=== PATIENT | male | born 1970 | race Caucasian/White ===

== ENCOUNTER 2022-07-22 01:40 | Day surgery (SDC) | payer BC, SELFPAY ==
[2022-07-08 11:07] VITALS: BMI 29.6
--- NOTE | 2022-07-21 13:38 | P.HP_ITS ---
History of Present Illness History of Present Illness Consent: Risks, benefits, and alternatives have been discussed and questions answered. Patient agrees to proceed with procedure. Chief complaint: neoplasm screening Narrative: Max Davis is a 52 year old male Referred for colon cancer screening. Review of Systems Review of Systems: All systems reviewed & are unremarkable except as noted in HPI and below PMFSH Social History Social History Alcohol intake: current Drinks per week: 5 Living arrangements: with family Spiritual care concerns: No Meds Home Medications and Allergies Home Medications Medication Instructions Recorded Confirmed Type omeprazole 40 mg capsule,delayed 40 mg PO DAILY 07/08/22 07/08/22 History release thyroid (pork) 60 mg tablet (VULNERABILITY ASSESSMENT ANALYST 60 mg PO DAILY 07/08/22 07/08/22 History Thyroid) Allergies Allergy/AdvReac Type Severity Reaction Status Date / Time No Known Allergies Allergy Verified 07/22/22 09:07 Exam Resp: Auscultation: clear to auscultation bilaterally Cardio: Rate: regular rate Rhythm: regular rhythm GI: GI Palp: Yes Soft to palpation and No Tenderness to palpation present (GI) Assessment and Plan Assessment and plan (1) Colon cancer screening: Code(s): Z12.11 - Encounter for screening for malignant neoplasm of colon Status: Acute Assessment and Plan: Colonoscopy with possible biopsy or polypectomy or cautery or injection of substances.
[2022-07-22 09:08] VITALS: BP 149/92; PULSE 69; RESP 18; TEMP 35.7; O2SAT 98
[2022-07-22] MEDS: LACTATED RINGERS 1,000 ML 150 ML IV CONT (09:20)
--- NOTE | 2022-07-22 09:33 | WPDANESEPPF ---
Anes - Initial Pre Proc Eval Procedure: Operation Date: 07/22/22 10:00 Proposed Procedures p Screening Colonoscopy - Josh Casarez MD Date/Time: 07/22/22 09:33 Surgeon: Josh Casarez MD Pre Op Diagnosis: neoplasm screening Patient Data Age: 52 Gender: M Height: 1.85 m Weight: 102.3 kg Last Vital Signs Temp 96.2 F L 07/22/22 09:08 Pulse 69 07/22/22 09:08 Resp 18 07/22/22 09:08 BP 149/92 H 07/22/22 09:08 Pulse Ox 98 07/22/22 09:08 O2 Del Method Room Air 07/22/22 09:08 Allergies Allergy/AdvReac Type Severity Reaction Status Date / Time No Known Allergies Allergy Verified 07/22/22 09:07 Home Medications Medication Instructions Recorded Confirmed Type omeprazole 40 mg capsule,delayed 40 mg PO DAILY 07/08/22 07/08/22 History release thyroid (pork) 60 mg tablet (AIRCRAFT SKIN BURNISHER 60 mg PO DAILY 07/08/22 07/08/22 History Thyroid) Patient hx anesthesia problems: none Family hx anesthesia problems: none Results Review: All pre-operative results and documents have been reviewed as part of the pre-operative evaluation. [facility] Social History Social History Alcohol intake: current Drinks per week: 5 Living arrangements: with family Spiritual care concerns: No Anes - Eval Final PreProcedure Day of Procedure 07/22/22 09:33 Patient weight: normal Heart: regular rate and rhythm Lungs: clear to auscultation Airway: Mallampati scale class II Neurological: alert and oriented Last oral intake: >/= 8 hours ASA classification: II Emergent: no Anesthetic plan: proceed Anesthesia type and monitoring: general GIVS and standard monitoring Results Review: All pre-operative results and documents have been reviewed as part of the pre-operative evaluation. Informed Consent: The patient's anesthetic plan and its attendant risks and benefits were discussed with the patient/family/POA. Questions were solicited and answers provided to the satisfaction of the patient/family/POA.
[2022-07-22] MEDS: SIMETHICONE ORAL SUSPENSION 20 MG/0.3 ML 30 ML BOTTLE 0.6 ML IRRIGATION (10:04)
[2022-07-22 10:20] VITALS: BP 101/59; PULSE 60; RESP 16; O2SAT 93
[2022-07-22 10:30] VITALS: BP 107/66; PULSE 58; RESP 14; O2SAT 94
[2022-07-22 10:40] VITALS: BP 119/79; PULSE 58; RESP 16; O2SAT 97
[2022-07-22 10:50] VITALS: BP 122/75; PULSE 55; RESP 18; O2SAT 99
== END 2022-07-22 10:59 | disposition home or self-care (01) ==
PROVIDERS: PCP Nurse Practitioner Family; Visit Provider Internal Medicine Gastroenterology
PROC: 0DJD8ZZ Inspection of Lower Intestinal Tract, Via Natural or Artificial Opening Endoscopic (ICD-10-PCS; CPT 45378; principal; 2022-07-22 10:00)
DX: Z12.11 Encounter for screening for malignant neoplasm of colon (principal); K63.5 Polyp of colon; K62.1 Rectal polyp
CPT/HCPCS: 45385; 45380; 45381; 88305; J2704; J7120

== ENCOUNTER 2022-08-09 01:14 | Day surgery (SDC) | payer BC, SELFPAY ==
--- NOTE | 2022-08-04 16:51 | SUR.PREOP ---
Report to the Outpatient Waiting Room, entrance under the green pavilion located off [facility], at time 1015 on date 08/09/22. OR Time: 1215. Time changes happen often and if your time is changed the preop area will call you the afternoon before. - You and your visitor will be asked to self-screen and do not enter if you have any COVID symptoms. - Only one visitor and NO children visitors are allowed at this time. - The patient visitor is requested to leave or wait in car when not with patient due to restrictions. - A mask is required within the hospital. Patients may have clear liquids (water, carbonated beverages, clear teas, apple juice) until 3 hours prior to surgery with a maximum of 20 ounces. - NO CLEAR LIQUIDS AFTER 0915 - No food from midnight until time of surgery - Infants may have breast milk until 4 hours before surgery, infant formula 6 hours prior to surgery. - Children will be allowed to drink immediately following surgery. If applicable, please bring a bottle or sippy cup to assist with drinking. Juice, water, soda, and popsicles are readily available. For infants on formula, please bring formula the day of surgery. Pacifiers are allowed. Take the following medications with a SIP of water the morning of surgery: HARMONIC ANALYST THYROID Please no make-up, nail macedonian, hairspray, perfume, deodorant, or body powder the day of surgery. No jewelry (including any body piercings) or valuables the day of surgery, leave them at home. Please take a shower or bath the night before, or the morning of, surgery with an antibacterial soap. Wear comfortable, loose fitting clothing. Children are encouraged to wear pajamas. - Jewelry must be removed prior to entering the operating room. Rings and piercings that are not removed may be cut off. - The hospital will not accept responsibility for valuables. - Please leave all valuables, including medications, at home the day of surgery. If you are going home after surgery, a licensed delivery motorcycle driver must drive you home. - NO public transportation without another adult. - We recommend that an adult stay with you for 24 hours following discharge. - We also recommend that you do not drive, make important decision, drink alcoholic beverages, or take any drugs that were not prescribed by your health care provider for at least 24 hours after your discharge time. For Pediatric surgeries, we recommend two adults accompany the child home (only one inside the building at this time). Follow any additional instructions given to you from your surgeon. If you or anyone in your household have experienced Covid symptoms in the past week, please notify your surgeon or the nurse liaison at the phone number below for possible testing. Telephone instructions given to KEV GALVAN and asked if any additional questions and then verbalized understanding. Patient advised to call surgeon office or pre surgery nurse liaison [phone] if any additional questions.
[2022-08-04 17:02] VITALS: BMI 29.7
[2022-08-09] VITALS (8 sets, daily range): BP systolic 124–173; BP diastolic 78–92; PULSE 64–86; RESP 14–19; TEMP 36.5–36.8; O2SAT 95–100
[2022-08-09] MEDS: OXYMETAZOLINE HCL 0.05% NAS 15 ML BTL (*BKC) 1 SPRAY NASAL (11:00)
[2022-08-09] MEDS: ACETAMINOPHEN 500 MG TABLET 1000 MG PO (11:00)
[2022-08-09] MEDS: LACTATED RINGERS 1,000 ML 30 ML IV CONT (11:00)
--- NOTE | 2022-08-09 11:02 | P.PNAN_ITS ---
Anes - Initial Pre Proc Eval Procedure: Operation Date: 08/09/22 12:15 Proposed Procedures p Endoscopic Septoplasty - Max Medellin MD s Bilateral Turbinate Reduction - Max Medellin MD Date/Time: 08/09/22 11:02 Surgeon: Max Medellin MD Pre Op Diagnosis: deviated septum, turbinate hypertrophy Patient Data Age: 52 Gender: M Height: 1.85 m Weight: 102.1 kg Allergies Allergy/AdvReac Type Severity Reaction Status Date / Time No Known Allergies Allergy Verified 08/04/22 17:02 Home Medications Medication Instructions Recorded Confirmed Type omeprazole 40 mg capsule,delayed 40 mg PO DAILY 07/08/22 08/04/22 History release thyroid (pork) 60 mg tablet (CERTIFIED FLEX ENDOSCOPE REPROCESSOR 60 mg PO DAILY 07/08/22 08/04/22 History Thyroid) Patient hx anesthesia problems: none Family hx anesthesia problems: none Results Review: All pre-operative results and documents have been reviewed as part of the pre- operative evaluation. PMFSH Past Medical History Medical History Hyperlipidemia Hypothyroid Social History Social History Alcohol intake: current Drinks per week: 5 Living arrangements: with family Spiritual care concerns: No Anes - Eval Final PreProcedure Day of Procedure 08/09/22 11:02 Patient weight: overweight Heart: regular rate and rhythm Lungs: clear to auscultation Airway: Mallampati scale class II Neurological: alert and oriented Last oral intake: >/= 8 hours ASA classification: II Emergent: no Anesthetic plan: proceed Anesthesia type and monitoring: general ETT and standard monitoring Results Review: All pre-operative results and documents have been reviewed as part of the pre- operative evaluation. Informed Consent: The patient's anesthetic plan and its attendant risks and benefits were discussed with the patient/family/POA. Questions were solicited and answers provided to the satisfaction of the patient/family/POA.
--- NOTE | 2022-08-09 11:06 | PM.IMHP ---
H&P: HPI History of Present Illness Date/Time: 08/09/22 11:06 Chief Complaint: Nasal dyspnea Narrative: Chronic R>L nasal dyspnea Review of Systems Review of Systems: All systems reviewed & are unremarkable except as noted in HPI and below PMFSH Past Medical History Medical History Hyperlipidemia Hypothyroid Social History Social History Alcohol intake: current Drinks per week: 5 Living arrangements: with family Spiritual care concerns: No Meds Home Medications and Allergies Home Medications Medication Instructions Recorded Confirmed Type omeprazole 40 mg capsule,delayed 40 mg PO DAILY 07/08/22 08/04/22 History release thyroid (pork) 60 mg tablet (THERAPEUTIC RECREATION SPECIALIST 60 mg PO DAILY 07/08/22 08/04/22 History Thyroid) Allergies Allergy/AdvReac Type Severity Reaction Status Date / Time No Known Allergies Allergy Verified 08/04/22 17:02 Exam Narrative: Broad right septal deviation, turbintae hypertrophy, rest of exam wnl Assessment and Plan Assessment and plan (1) Deviated nasal septum: Code(s): J34.2 - Deviated nasal septum Status: Acute Plan Max has deviated nasal septum, turbinate hypertrophy, here for septoplasty and turbinoplasty. r/b/a reviewed, pt understands and agrees. Refer to outpt H&P for full details.
--- NOTE | 2022-08-09 11:09 | WPDHPUPDATE1 ---
History and Physical Update Update Date/Time: 08/09/22 11:09 History and Physical has been reviewed, including an updated exam of the patient. There are NO changes in the patient's condition. Risks, benefits, and alternatives have been discussed and questions answered. Patient agrees to proceed with procedure.
[2022-08-09] MEDS: ceFAZolin 2 GM/D5W 50 ML 2 GM/50 ML BAG IVPB (11:28)
[2022-08-09] MEDS: MUPIROCIN 2% OINT 22 GM TUBE 1 APPLIC EACH NARE (12:29)
[2022-08-09] MEDS: LIDO 1%/EPINEPHRINE 1:100,000 10 ML VIAL INFILTRATE (12:30)
--- NOTE | 2022-08-09 12:32 | P.OP_ITS ---
Procedure Note - Detailed Date of Procedure 08/09/22 Pre-op Diagnosis deviated septum, turbinate hypertrophy Post-op Diagnosis Same Procedure Performed Endoscopic septoplasty and bilateral inferior turbinoplasty Surgeon Max Medellin MD Anesthesia General Indications Nasal dyspnea Findings Right septal deviation caudally and posteriorly. Description of Procedure After obtaining informed consent and proper site verification the patient was brought to the operating room and placed on the operating table in the supine position. They were placed under general endotracheal anesthesia by the anesthesia provider. The patient was then draped in standard fashion for septoplasty and turbinoplasty. A timeout was performed and the correct patient and procedure were verified. The nasal cavity was injected with 1% lidocaine with 1-100,000 epinephrine and packed with afrin-soaked cottonoid pledgets. ? Attention was then directed to the nasal septum. A hemitransfixion incision was made in the left caudal septum and a mucoperichondrial flap was elevated in the usual fashion. The flap was elevated under endoscopic visualization and the remainder of the case was performed with endoscopic assistance. Using a D- knife, an incision was made through the cartilaginous septum with care to preserve the appropriate caudal and dorsal ?L-strut? of cartilage. The cartilage was then disarticulated from the bony-cartilaginous junction and the deviated cartilage was removed. Further deviated bone and cartilage was removed from the maxillary crest and posterior bony septum with care to avoid injury to the mucoperichondrial flap using a combination of dissection and Dale- April forceps. Once this was completed, the hemitransfixion incision was closed using simple interrupted 4-0 chromic suture. A quilting stitch to reapproximate the mucoperichondrial flaps was then placed using 4-0 plain gut suture on a Juan needle. ? Next attention was directed to the turbinates. Using a 0? telescope and 2mm turbinate blade microdebrider, a stab incision was made in the anterior face of the turbinate and dissection was carried posterior to perform submucosal resection. Next the turbinate was outfractured using a blunt instrument. A similar procedure was then performed on the right-hand side without difficulty. Porras splints covered in mupirocin ointment were placed in the nasal cavity and secured to the membranous septum using a 2-0 nylon suture. ?The patient was awakened from general anesthesia extubated in the operating room, and transported to the recovery room in stable condition without complication. Estimated Blood Loss 100 Drains No Packing Yes (porras splints) Pathology None sent Complications No immediate complications Condition Stable Disposition PACU
[2022-08-09] MEDS: fentaNYL CITRATE INJ (*CRX) 100 MCG/2 ML VIAL 25 MCG IV PUSH ×4 (13:09→13:27)
--- NOTE | 2022-08-09 14:11 | SUR.PHASEII ---
RN changed drip pad x2 in outpatient and applied ice to try and slow down bleeding.
== END 2022-08-09 14:50 | disposition home or self-care (01) ==
PROVIDERS: PCP Nurse Practitioner Family; Visit Provider Otolaryngology
PROC: (CPT 30520; principal; 2022-08-09 12:15)
PROC: (CPT 30520; 2022-08-09 12:15)
DX: J34.2 Deviated nasal septum (principal); J34.3 Hypertrophy of nasal turbinates; E03.9 Hypothyroidism, unspecified
CPT/HCPCS: 30520; 30140; A9270; J0330; J0690; J1100; J2250; J2405; J2704; J3010; J7120

== ENCOUNTER 2024-10-29 13:04 | Emergency (ER) | payer BC, SELFPAY ==
[2024-10-29 13:35] VITALS: BP 193/120; PULSE 110; RESP 20; TEMP 36.8; O2SAT 99
--- NOTE | 2024-10-29 14:35 | ECG_ITS ---
Test Date: 2024-10-29 15:09:20 Measurements Intervals [place] Rate: 100 P: 48 DE: 176 QRS: 16 QRSD: 99 T: 38 QT: 327 QTc: 422 Interpretive Statements SINUS TACHYCARDIA ABNORMAL RHYTHM ECG No previous ECG available for comparison Electronically Signed On 10-29-2024 21:22:07 MARINE EXTENSION AGENT by Ariel Clayton M.D.
--- NOTE | 2024-10-29 14:42 | ED.RECABL ---
HPI - Recheck/Abnormal Lab/Rx General Chief Complaint: Recheck/Abnormal Lab/Rx Stated Complaint: high BP Time Seen by Provider: 10/29/24 15:40 Patient presents with elevated BP. patient went to have testosterone seeds placed and was told he had elevated bp. patient then attempted to give blood but was unable to r/t elevated bp. patient states he is nervous but denies chest pain, headache or SOB. no other complaints. History of Present Illness HPI narrative: See MSE Related Data Home Medications ?Medication ?Instructions ?Recorded ?Confirmed ?Last Taken ?Type omeprazole 40 mg capsule,delayed 40 mg PO DAILY 07/08/22 08/04/22 07/21/22 History release thyroid (pork) 60 mg tablet (CLAY STRUCTURE BUILDER AND SERVICER 60 mg PO DAILY 07/08/22 08/04/22 07/21/22 History Thyroid) Allergies Allergy/AdvReac Type Severity Reaction Status Date / Time No Known Allergies Allergy Verified 04/29/23 08:38 Review of Systems Review of Systems: All systems reviewed & are unremarkable except as noted in HPI and below Constitutional: Constitutional: Reports no additional constitutional complaints [facility] Past Medical History Medical History (Updated 10/29/24 @ 17:39 by Warren Atkins APRN) Hypothyroid Hyperlipidemia Social History Social History (System 04/29/23 @ 08:38 by Mikal Bolaños) Alcohol intake: current Drinks per week: 5 Living arrangements: with family Spiritual care concerns: No Exam Narrative: General appearance: Well-developed, well-nourished Skin: Normal color Head: Normocephalic, nontraumatic Eyes: Clear conjunctiva ENT: Oropharynx normal, ears normal, nose normal Neck: Supple, nontender Chest and respiratory: Airway patent, no respiratory distress, no accessory muscle use Heart: Regular rate/rhythm Abdomen: Soft, nontender, no organomegaly, quiet bowel sounds Vascular: Normal peripheral pulses, normal capillary refill. Musculoskeletal: Normal range of motion, nontender back Neurologic: Alert and oriented ?3, FOOD DEMONSTRATOR is normal as tested, no gross motor deficit Psych: Affect: Anxious affect present Course Reevaluation(s) Reevaluation #1: BP is 160/90 Date: 10/29/24 Time: 17:37 Vital Signs Vital signs: Vital Signs Temperature 36.8 C 10/29/24 13:35 Pulse Rate 110 H 10/29/24 13:35 Respiratory Rate 20 10/29/24 13:35 Blood Pressure 193/120 H 10/29/24 13:35 Pulse Oximetry 99 10/29/24 13:35 Oxygen Delivery Room Air 10/29/24 13:35 Temperature 36.8 C 10/29/24 13:35 Pulse Rate 77 10/29/24 16:33 Respiratory Rate 18 10/29/24 16:33 Blood Pressure 190/115 H 10/29/24 16:33 Pulse Oximetry 96 10/29/24 16:33 Oxygen Delivery Room Air 10/29/24 13:35 MDM - Recheck/Abnormal Lab/Rx MDM Narrative Medical decision making narrative: Patient was given 5 mg of Metoprolol and 10 mg of hydralazine. Patient remains asymptomatic at this time. Labs are within normal limits. Patient has follow-up primary care doctor in 10 days. Will start on metoprolol 50 mg extended release. Will discharge home Lab Data 10/29/24 15:04 10/29/24 15:04 Labs: Lab Results 10/29/24 Range/Units 15:04 WBC 7.3 (4.5-10.0) K/mm3 RBC 5.54 (4.6-6.20) M/mm3 Hgb 18.0 (14.0-18.0) g/dL Hct 51.3 (42.0-52.0) % MCV 92.6 (80-100) fl MCH 32.5 (26-34) pg MCHC 35.1 (32-36) g/dl RDW 12.8 (11.5-14.5) % Plt Count 217 (150-375) k/mm3 MPV 10.0 (7.4-10.4) fl Immature Gran % (Auto) 0.3 (0-0.5) % Neut % (Auto) 62.1 (45.5-73.1) % Lymph % (Auto) 26.6 (18.3-44.2) % Knott % (Auto) 9.1 H (2.6-8.5) % Eos % (Auto) 0.8 (0-4.4) % Baso % (Auto) 1.1 (0.2-1.2) % Lymph # (Auto) 1.93 (0.9-3.2) K/mm3 Knott # (Auto) 0.7 H (0.1-0.6) K/mm3 Eos # (Auto) 0.1 (0-0.3) K/mm3 Baso # (Auto) 0.1 (0.0-0.1) K/mm3 Abs Immat Gran (auto) 0.02 (0.00-0.031) K/mm3 Absolute Neuts (auto) 4.5 (1.3-6.7) K/mm3 Absolute Nucleated RBC 0.000 (0.0-0.012) K/mm3 Nucleated RBC % 0.0 (0.0-0.2) % Sodium 138 (137-145) mmol/L Potassium 4.0 (3.4-5.0) mmol/L Chloride 105 (98-107) mmol/L Carbon Dioxide 27 (22-30) mmol/L Anion Gap 6 (4-12) mmol/L BUN 15 (9-20) mg/dL Creatinine 1.00 (0.7-1.3) mg/dL Estim Creat Clear Calc 97 ml/min Estimated GFR > 60 (59 - ) Glucose 81 (65-110) mg/dL Calcium 9.6 (8.4-10.2) mg/dL Magnesium 2.1 (1.6-2.3) mg/dL Total Bilirubin 0.7 (0.2-1.3) mg/dL AST 40 (17-59) U/L ALT 50 (6-50) U/L Alkaline Phosphatase 48 (38-126) U/L Troponin I < 0.012 (0.000-0.034) ng/mL Total Protein 7.0 (6.3-8.2) g/dL Albumin 4.5 (3.5-5.1) g/dL TSH (Reflex) 1.210 (0.465-4.68) uIU/mL Discharge Plan Discharge Clinical Impression: Hypertension Patient Disposition: Home, Self-Care Condition: Stable Instructions: Antibiotic Form, Hypertension (ED) Additional Instructions: Take medication as prescribed Return for chest pain, headache, shortness breath follow-up with primary care doctor as scheduled Patient Language: Syrian Prescriptions: New metoprolol succinate 50 mg capsule,sprinkle,ER 24hr 50 mg PO DAILY Qty: 30 0RF No Action hydrocodone-acetaminophen 5-325 mg tablet 1 tablet PO Q4H PRN (Reason: pain) Qty: 20 0RF thyroid (pork) [CLAY STRUCTURE BUILDER AND SERVICER Thyroid] 60 mg tablet 60 mg PO DAILY omeprazole 40 mg capsule,delayed release(DR/EC) 40 mg PO DAILY Follow-up/Referrals: Shashank Ramos MD [Primary Care Provider] - 3 Days Time of Disposition: 17:40
[2024-10-29 15:19] LABS: Basophils Absolute Auto 0.1 K/mm3 (0.0-0.1); Basophils Percent Auto 1.1 % (0.2-1.2); Eosinophils Absolute Auto 0.1 K/mm3 (0-0.3); Eosinophils Percent Auto 0.8 % (0-4.4); Hematocrit 51.3 % (42.0-52.0); Immature Granulocyte Absolute 0.02 K/mm3 (0.00-0.031); Immature Granulocyte Percent A 0.3 % (0-0.5); Lymphocytes Absolute Auto 1.93 K/mm3 (0.9-3.2); Lymphocytes Percent Auto 26.6 % (18.3-44.2); Mean Corpuscular HGB Conc 35.1 g/dl (32-36); Mean Corpuscular Hemoglobin 32.5 pg (26-34); Mean Corpuscular Volume 92.6 fl (80-100); Monocytes Absolute Auto 0.7 K/mm3 (0.1-0.6); Monocytes Percent Auto 9.1 % (2.6-8.5); Neutrophils Absolute Auto 4.5 K/mm3 (1.3-6.7); Neutrophils Percent Auto 62.1 % (45.5-73.1); Platelet Count Result 217 k/mm3 (150-375); Red Blood Count 5.54 M/mm3 (4.6-6.20); Red Cell Distribution Width 12.8 % (11.5-14.5); White Blood Count 7.3 K/mm3 (4.5-10.0)
[2024-10-29 15:43] VITALS: BP 195/109; PULSE 103; RESP 14; O2SAT 98; O2SAT 99
[2024-10-29 15:46] VITALS: PULSE 100
[2024-10-29 15:46] LABS: Alanine Aminotransferase 50 U/L (6-50); Albumin Level 4.5 g/dL (3.5-5.1); Alkaline Phosphatase 48 U/L (38-126); Anion Gap 6 mmol/L (4-12); Aspartate Amino Transferase 40 U/L (17-59); Bilirubin,Total 0.7 mg/dL (0.2-1.3); Blood Urea Nitrogen 15 mg/dL (9-20); Calcium 9.6 mg/dL (8.4-10.2); Carbon Dioxide 27 mmol/L (22-30); Chloride 105 mmol/L (98-107); Estimated CRCL calculation 97 ml/min; Estimated Glomerular Filt Rate > 60; Glucose 81 mg/dL (65-110); Magnesium 2.1 mg/dL (1.6-2.3); Sodium 138 mmol/L (137-145); Troponin I < 0.012 ng/mL (0.000-0.034)
[2024-10-29] MEDS: METOPROLOL TARTRATE INJ 5 MG/5 ML VIAL IV PUSH (15:46)
[2024-10-29 16:33] VITALS: BP 190/115; PULSE 77; RESP 18; O2SAT 96
[2024-10-29] MEDS: hydrALAZINE HCL 20 MG/ML VIAL 10 MG IV PUSH (16:36)
[2024-10-29 16:45] VITALS: BP 163/92; PULSE 84; RESP 14; O2SAT 95
[2024-10-29 17:30] VITALS: BP 162/91; PULSE 84; RESP 18; O2SAT 96
== END 2024-10-29 17:54 | disposition home or self-care (01) ==
PROVIDERS: Emergency Provider Nurse Practitioner Family; PCP Family Medicine
DX: I10 Essential (primary) hypertension (principal); E03.9 Hypothyroidism, unspecified; E78.5 Hyperlipidemia, unspecified; R00.0 Tachycardia, unspecified
CPT/HCPCS: 36415; 80053; 83735; 84443; 84484; 85025; 93005; 96374; 96375; 99284; J0360

== ENCOUNTER 2025-03-14 09:37 | Outpatient (CLI) | payer BC, SELFPAY ==
--- NOTE | ~2025-03-14 | XR_ITS ---
Lumbosacral Spine: AP, oblique, and lateral views Clinical History: Pain Findings: The normal lordotic curve is maintained. No fracture evident. There is minimal grade 1 ante rolisthesis of L4 over L5. There is mild to moderate facet arthropathy from L4 through S1.. The sacr oiliac joints are normally outlined. Impression: Mild degenerative spondylosis, as above. Minimal grade 1 anterolisthesis of L4 over L5. Reviewed, dictated and finalized at location M. Impression: Mild degenerative spondylosis, as above. Minimal grade 1 anterolisthesis of L4 over L5.
--- NOTE | ~2025-03-14 | CT_ITS ---
CT of the Abdomen and Pelvis: Indication: Abdominal pain Technique: 2.5 mm axial scans were obtained through the abdomen and pelvis following intravenous adm inistration of 100 cc of Omnipaque 350. Dose reduction technique was used on this scan by utilizing a utomated exposure control and iterative reconstruction technique. The dose-length product (DLP) was 6 24.94 mGy-cm. Findings: Scans through the lung bases are unremarkable. The liver, spleen, pancreas, gallbladder, right adrenal gland and kidneys are within normal limits. S mall left adrenal myelolipoma present. There are atherosclerotic calcifications of the aorta. No lym phadenopathy. No bowel obstruction or bowel wall thickening. There is no evidence to suggest acute appendicitis. Images through the pelvis were performed. Urinary bladder unremarkable. No pelvic mass seen. Prostate gland mildly enlarged. No ascites. Impression: No significant abnormalities seen. Reviewed, dictated and finalized at [facility]. Impression: No significant abnormalities seen.
[2025-03-14 10:16] LABS: Estimated Glomerular Filt Rate > 60
== END 2025-03-14 09:38 | disposition home or self-care (01) ==
PROVIDERS: PCP Family Medicine
DX: R10.9 Unspecified abdominal pain (principal); R31.29 Other microscopic hematuria; M47.896 Other spondylosis, lumbar region
CPT/HCPCS: 72110; 74177; Q9967